=== PATIENT | female | born 1945 | race Caucasian/White ===

== ENCOUNTER 2021-05-01 23:18 | Emergency (ER) | payer MEDICARE ==
[2021-05-02] MEDS ORDERED: BENADRYL25 MG PO (01:03)
[2021-05-02] MEDS ORDERED: MEDROL4 MG PO (01:04)
== END 2021-05-02 01:20 | disposition home or self-care (01) ==
LOC: ER1 23:18
DX: L50.0 Allergic urticaria (principal); E11.9 Type 2 diabetes mellitus without complications; Z85.3 Personal history of malignant neoplasm of breast; Z88.6 Allergy status to analgesic agent; Z90.49 Acquired absence of other specified parts of digestive tract
CPT/HCPCS: 96372; 99282; J1100